=== PATIENT | female | born 1985 | race Caucasian/White ===

== ENCOUNTER 2017-11-22 14:34 | Emergency (ER) | payer MEDICARE ==
[~2017-11-22] VITALS: Ht 162.6 cm; Wt 97.5 kg
[2017-11-22 14:35] VITALS: BP_SYST 136
--- NOTE | 2017-11-22 16:02 | NUR ---
Pt report received from FANTASMA Ramirez. Pt c/o cough, congestion, sore throat with swollen tonsils x 4 days. Airway patent.
--- NOTE | 2017-11-22 16:02 | NUR ---
Patient to ER bed 8 to gown for evaluation. Side rails up. Report given to ELDER.
--- NOTE | 2017-11-22 18:10 | NUR ---
Dr. Morales at bedside to assess pt.
[2017-11-22] MEDS ORDERED: KETOROLAC TROMETHAMINE 60 MG/2 ML VIAL IM ONE (18:15)
[2017-11-22 18:40] VITALS: BP_SYST 128
--- NOTE | 2017-11-22 18:44 | NUR ---
Patient given written and verbal discharge instructions and verbalizes understanding. ER MD discussed with patient the results and treatment provided. Patient in stable condition. ID arm band removed. Rx of Ibuprofen and Amoxicillin given. Patient educated on pain management and to follow up with PMD. Pain Scale 4/10. Opportunity for questions provided and answered.
== END 2017-11-22 18:44 | disposition home or self-care (01) ==
LOC: SED 14:34
DX: J03.90 Acute tonsillitis, unspecified (principal); R03.0 Elevated blood-pressure reading, without diagnosis of hypertension; F32.9 Major depressive disorder, single episode, unspecified; Z88.2 Allergy status to sulfonamides
CPT/HCPCS: 36415; 86710; 96372; 99284; J1885

== ENCOUNTER 2021-03-12 19:56 | Emergency (ER) | payer BC, MEDICARE ==
[~2021-03-12] VITALS: Ht 162.6 cm; Wt 102.5 kg
[2021-03-12 20:00] VITALS: BP_SYST 141
--- NOTE | 2021-03-12 20:18 | NUR ---
Patient to ER bed 02 to gown for evaluation. Side rails up. Report given to FANTASMA Parker
--- NOTE | 2021-03-12 20:18 | NUR ---
Patient is AOx4, ambulatory from home complaining of painful itchy diffuse rash on upper arms, abdomen and lower extremities x 11 days. Purple colored and clustered on bilateral feet and legs. red small spots throughout the arms and abdomen. Patient also reports congestion with thick mucus x 2 months and right ear pain, itchy and "plugged" x 2 days. History of depression. Pain 4/10. No other complaints per patient or as noted.
--- NOTE | 2021-03-12 21:20 | NUR ---
VSS no s/s of acute distress Resting on gurney rails up
--- NOTE | 2021-03-12 21:30 | NUR ---
Dr. Rae bedside for pt update
[2021-03-12 21:54] LABS: HEMATOCRIT 38.6 % (36-48); HEMOGLOBIN 12.8 g/dL (12.0-16.0); MEAN CORPUSCULAR HEMOGLOBIN 30 pg (27-31); MEAN CORPUSCULAR HGB CONC 33 % (32-36); MEAN CORPUSCULAR VOLUME 89 fL (79.0-98.0); RED BLOOD CELL COUNT(AUTO) 4.33 MIL/uL (4.2-6.2); WHITE BLOOD COUNT (AUTO) 13.2 K/uL (4.8-10.8)
[2021-03-12 21:55] LABS: BASOPHILS # (AUTO) 0.1 K/uL (0.0-0.2); BASOPHILS % (AUTO) 0.6 % (0.0-2.0); EOSINOPHILS # (AUTO) 0.5 K/uL (0.0-0.4); EOSINOPHILS % (AUTO) 3.6 % (0.0-4.0); LYMPHOCYTES # (AUTO) 3.7 K/uL (1.0-5.5); LYMPHOCYTES % (AUTO) 27.9 % (20.5-51.5); MONOCYTES # (AUTO) 0.7 K/uL (0.0-1.0); MONOCYTES % (AUTO) 5.1 % (1.7-9.3); NEUTROPHILS # (AUTO) 8.3 K/uL (1.8-7.7); NEUTROPHILS % (AUTO) 62.8 % (40.0-70.0); PLATELET COUNT (AUTO) 300 K/uL (130-430)
[2021-03-12 21:56] LABS: CALCIUM 8.5 mg/dL (8.4-11.0); CREATININE 1.02 mg/dL (0.55-1.30); POTASSIUM 4.4 mmol/L (3.5-5.1)
[2021-03-12 21:58] LABS: PROTHROMBIN TIME 9.9 SECS (9.5-12.5)
[2021-03-12 22:01] LABS: TOTAL BILIRUBIN 0.1 mg/dL (0.0-1.0)
[2021-03-12 22:31] LABS: ERYTHROCYTE SEDIMENTATION RATE 33 MM/HR (0-20)
--- NOTE | 2021-03-12 22:35 | NUR ---
VSS no s/s of acute distress Resting on gurney rails up
[2021-03-12 22:45] LABS: BILIRUBIN,URINE NEGATIVE (NEGATIVE); BLOOD, URINE NEGATIVE (NEGATIVE); CLARITY/URINE CLEAR (CLEAR); COLOR,URINE YELLOW (YELLOW); GLUCOSE,URINE NEGATIVE (NEGATIVE); KETONES,URINE NEGATIVE (NEGATIVE); LEUKOCYTE ESTERASE ,URINE NEGATIVE (NEGATIVE); NITRITE, URINE NEGATIVE (NEGATIVE); PROTEIN URINE NEGATIVE (NEGATIVE); UROBILINOGEN,URINE 0.2 (0.2-1.0)
--- NOTE | 2021-03-12 23:41 | NUR ---
Dr. Cronin bedside for pt update
--- NOTE | 2021-03-13 00:31 | NUR ---
Pt remains in stable condition, Pt stated " feeling a bit better "
--- NOTE | 2021-03-13 01:59 | NUR ---
Pt taken to radiology in stable condition
[2021-03-13 03:08] VITALS: BP_SYST 138
--- NOTE | 2021-03-13 03:08 | NUR ---
Patient given written and verbal discharge instructions and verbalizes understanding. ER MD discussed with patient the results and treatment provided. Patient in stable condition. ID arm band removed. Patient educated on pain management and to follow up with PMD. Pain Scale 0/10 Opportunity for questions provided and answered.
== END 2021-03-13 03:08 | disposition home or self-care (01) ==
LOC: SED 19:56
DX: D69.2 Other nonthrombocytopenic purpura (principal); Z88.2 Allergy status to sulfonamides
CPT/HCPCS: 36415; 71045; 76376; 80053; 81003; 83605; 85025; 85610-TC; 85651-TC; 85730-TC; 86140; 86886; 86900; 86901; 87040-TC; 87086; 93005; 99285